=== PATIENT | female | born 1995 | race Caucasian/White ===

== ENCOUNTER 2020-01-24 15:53 | Emergency (ER) | payer OTHER, SELFPAY ==
[2020-01-24 15:55] VITALS: BP 130/61; PULSE 100; RESP 18; TEMP 36.1; O2SAT 100
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
[2020-01-24] MEDS: ACETAMINOPHEN 325 MG TABLET 650 MG PO (17:46)
== END 2020-01-24 17:47 | disposition home or self-care (01) ==
PROVIDERS: Emergency Provider Emergency Medicine
DX: S80.12XA Contusion of left lower leg, initial encounter (principal); V49.40XA Driver injured in collision with unspecified motor vehicles in traffic accident, initial encounter
CPT/HCPCS: 99282; A9270

== ENCOUNTER 2021-07-19 17:01 | Emergency (ER) | payer OTHER, SELFPAY ==
--- NOTE | ~2021-07-19 | XR_ITS ---
XR foot RT min 3V DATE: 07/19/2021 17:19 INDICATION: Lateral right foot pain. No injury. TECHNIQUE: 4 views COMPARISON: None FINDINGS: No fracture or dislocation, periosteal reaction or bone destruction. Joint spaces are prese rved. No erosive change. IMPRESSION: Negative Reviewed, dictated and finalized at location A. IMPRESSION: Negative
--- NOTE | 2021-07-19 17:05 | ED_ITS ---
HPI - Extremity Injury (Lower) General Chief Complaint: Extremity Problem,Nontraumatic Stated Complaint: rt foot pain Source: patient Mode of arrival: ambulatory Limitations: no limitations History of Present Illness HPI Narrative: Patient is a 25-year-old female who presents complaining of right foot pain. She denies injury. She denies taking pjrg-[id number] medications for pain. She reports the pain is cramping and stabbing. Patient reports pain increases with ambulation. No visible deformity, edema or lesions noted. Patient has no significant medical history. Related Data Home Medications Medication Instructions Recorded Confirmed No Home Medications 07/19/21 07/19/21 Allergies Allergy/AdvReac Type Severity Reaction Status Date / Time No Known Allergies Allergy Verified 07/19/21 17:11 Review of Systems Review of Systems: CONSTITUTIONAL: Denies fever, chills, or sweats. EYES: Denies visual changes, redness, or discharge. ENT: Denies rhinorrhea, congestion, sore throat, or otalgia. CARDIOVASCULAR: Denies chest pain, palpitations, or edema. RESPIRATORY: Denies cough or dyspnea. GASTROINTESTINAL: Denies abdominal pain, nausea, vomiting, or diarrhea. GENITOURINARY: Denies dysuria or hematuria. SKIN: Denies rash or itching. MUSCULOSKELETAL: Reports pain to right foot NEUROLOGIC: Denies headache, numbness, dizziness, or weakness. PSYCHIATRIC: Denies anxiety or depression. [facility] Social History Social History (Updated 07/19/21 @ 17:11 by HEATHER Henson) Smoking status: Never smoker Alcohol intake: current Alcohol use details: Occasional Substance use: never Living arrangements: with family Gender identity (if verbalized by the patient): Male Comments At the time of signature, I have reviewed and agree with nursing past medical, surgical, social, and family history unless otherwise noted. Please see nursing chart for further information. There is no relevant family history pertinent to the presenting complaint. Exam Narrative: GENERAL: Well-appearing, well-nourished, and in no acute distress. HEAD: Normocephalic, atraumatic. EYES: EOMI. No redness or drainage. Conjunctiva are normal. ENT: Mucous membranes pink and moist. CHEST: No respiratory distress. HEART: Regular rate and rhythm. EXTREMITIES: Normal range of motion. No edema. Tenderness with palpation to right lateral foot, edema noted at fifth metatarsal, no visible deformity SKIN: Warm, dry, no rash. NEURO: No focal deficits. Alert and oriented x3. Gait steady. PSYCH: Normal affect. No signs of depression or anxiety. Critical Care Time Critical Care Time Critical Care Time: No Discharge Plan Discharge Clinical Impression: Foot pain, right Patient Disposition: Home, Self-Care Condition: Stable Additional Instructions: Keep Trent wrap on for comfort. Rest, ice and elevate foot. You may take Tylenol or ibuprofen for pain. Follow-up with podiatry in 3 to 5 days if symptoms persist. Prescriptions: No Action No Home Medications RF: 0 Follow-up/Referrals: UNKNOWN,DOCTOR [Primary Care Provider] - Time of Disposition: 17:38
[2021-07-19 17:08] VITALS: BP 123/66; PULSE 84; RESP 16; TEMP 36.9; O2SAT 99
== END 2021-07-19 17:48 | disposition home or self-care (01) ==
PROVIDERS: Emergency Provider Nurse Practitioner
DX: M79.671 Pain in right foot (principal)
CPT/HCPCS: 73630; 99213; G0463

== ENCOUNTER 2024-01-06 17:58 | Emergency (ER) | payer OTHER, SELFPAY ==
[2024-01-06 18:18] VITALS: BP 147/80; PULSE 104; RESP 16; TEMP 36.5; O2SAT 100
[2024-01-06 19:22] LABS: Basophils Absolute Auto 0.1 K/mm3 (0.0-0.1); Basophils Percent Auto 0.4 % (0.2-1.2); Eosinophils Absolute Auto 0.2 K/mm3 (0-0.3); Eosinophils Percent Auto 1.4 % (0-4.4); Hematocrit 42.3 % (37.0-47.0); Hemoglobin 13.9 g/dL (12.0-15.0); Immature Granulocyte Absolute 0.06 K/mm3 (0.00-0.031); Immature Granulocyte Percent A 0.5 % (0-0.5); Lymphocytes Absolute Auto 2.16 K/mm3 (0.9-3.2); Lymphocytes Percent Auto 17.3 % (18.3-44.2); Mean Corpuscular HGB Conc 32.9 g/dl (32-36); Mean Corpuscular Hemoglobin 28.1 pg (26-34); Mean Corpuscular Volume 85.6 fl (80-100); Mean Platelet Volume 10.5 fl (7.4-10.4); Monocytes Absolute Auto 0.6 K/mm3 (0.1-0.6); Monocytes Percent Auto 4.7 % (2.6-8.5); Neutrophils Absolute Auto 9.4 K/mm3 (1.3-6.7); Neutrophils Percent Auto 75.7 % (45.5-73.1); Platelet Count Result 303 k/mm3 (150-375); Red Blood Count 4.94 M/mm3 (4.2-5.4); Red Cell Distribution Width 13.6 % (11.5-14.5); White Blood Count 12.5 K/mm3 (4.5-10.0)
[2024-01-06 19:26] LABS: Appearance Urine Clear (Clear); Bilirubin Urine Negative (Negative); Blood Urine Negative (Negative); Color Urine Yellow (Yellow); Glucose Urine UA Negative (Negative); Ketones Urine Negative (Negative); Leukocyte Esterase Ur Negative LEU/UL (Negative); Nitrate Urine Negative (Negative); Protein Urine Negative (Negative); Specific Grav Ur 1.012 (1.001-1.035)
[2024-01-06 19:27] LABS: Add Urine Microscopic? NO
--- NOTE | 2024-01-06 19:43 | ED.ABDPAIN ---
HPI - Abdominal Pain General Chief Complaint: Abdominal Pain Stated Complaint: abdominal pain x2 hours Time Seen by Provider: 01/06/24 18:26 History of Present Illness HPI narrative: Patient is a 28-year-old female presenting with abdominal pain. Patient states that she believes she is approximately 6 weeks . States that she has had multiple positive tests at home. Today she developed epigastric pain that felt sharp. Associated with some nausea. She was able to eat which seemed to improve it that she became concerned as she did not have pain like this in her 1st . She denies any lower abdominal pain. She denies any pain right now. No vaginal bleeding or discharge. No chest pain or shortness of breath. No leg swelling. No further complaints. Related Data Allergies Allergy/AdvReac Type Severity Reaction Status Date / Time No Known Allergies Allergy Verified 01/06/24 19:02 Review of Systems Review of Systems: All systems reviewed & are unremarkable except as noted in HPI and below PMFSH Social History Social History Smoking status: Never smoker Alcohol intake: current Alcohol use details: Occasional Substance use: never Living arrangements: with family Gender identity (if verbalized by the patient): Male Exam Narrative: GENERAL: Well-appearing, In no acute distress, pleasant and cooperative HEAD: Normocephalic, atraumatic. EYES: PERRLA and EOMI. ENT: grossly unremarkable NECK: Supple. CHEST: Clear to auscultation. No respiratory distress. HEART: Regular rate and rhythm. ABDOMEN: Soft, nontender, nondistended EXTREMITIES: Normal range of motion. SKIN: Warm, dry, no rash. NEURO: No focal deficits. Alert and oriented x3. PSYCH: Normal mood and affect. Course Vital Signs Vital signs: Vital Signs Temperature 97.7 F 01/06/24 18:18 Pulse Rate 104 H 01/06/24 18:18 Respiratory Rate 16 01/06/24 18:18 Blood Pressure 147/80 H 01/06/24 18:18 Pulse Oximetry 100 01/06/24 18:18 Oxygen Delivery Room Air 01/06/24 18:18 Temperature 97.7 F 01/06/24 18:18 Pulse Rate 97 01/06/24 21:37 Respiratory Rate 15 01/06/24 21:37 Blood Pressure 138/74 01/06/24 21:37 Pulse Oximetry 100 01/06/24 21:37 Oxygen Delivery Room Air 01/06/24 18:18 MDM - Abdominal Pain MDM Narrative Medical decision making narrative: 28-year-old female presenting with upper abdominal pain. Vitals are stable. Exam is unremarkable. Abdomen is soft and benign. Blood work with mild leukocytosis. Normal lipase, normal LFTs. UA is unremarkable. Beta hCG is 44,000, consistent with her approximate gestational age of 6 weeks. Feel the patient is safe for outpatient management. Advise Tylenol for pain. Recommend close OB and PCP follow-up. Appropriate return precautions given. Patient is agreeable with this plan. Discharged in stable condition. Differential Diagnosis Differential diagnosis: Likely abdominal pain, gastroenteritis, pancreatitis and other (epigastric pain) Medical Records Attestation: I reviewed the patient's medical records. Lab Data Attestation: I reviewed the patient's lab results. 01/06/24 19:13 01/06/24 19:13 Labs: Lab Results 01/06/24 Range/Units 19:13 WBC 12.5 H (4.5-10.0) K/mm3 RBC 4.94 (4.2-5.4) M/mm3 Hgb 13.9 (12.0-15.0) g/dL Hct 42.3 (37.0-47.0) % MCV 85.6 (80-100) fl MCH 28.1 (26-34) pg MCHC 32.9 (32-36) g/dl RDW 13.6 (11.5-14.5) % Plt Count 303 (150-375) k/mm3 MPV 10.5 H (7.4-10.4) fl Immature Gran % (Auto) 0.5 (0-0.5) % Neut % (Auto) 75.7 H (45.5-73.1) % Lymph % (Auto) 17.3 L (18.3-44.2) % [place] % (Auto) 4.7 (2.6-8.5) % Eos % (Auto) 1.4 (0-4.4) % Baso % (Auto) 0.4 (0.2-1.2) % Lymph # (Auto) 2.16 (0.9-3.2) K/mm3 [place] # (Auto) 0.6 (0.1-0.6) K/mm3 Eos # (Auto) 0.2 (0-0.3) K/mm3 Baso
[2024-01-06 20:00] LABS: Alanine Aminotransferase 28 U/L (6-35); Albumin Level 4.1 g/dL (3.5-5.1); Alkaline Phosphatase 55 U/L (38-126); Anion Gap 6 mmol/L (8-16); Aspartate Amino Transferase 26 U/L (14-36); Bilirubin,Total 0.4 mg/dL (0.2-1.3); Blood Urea Nitrogen 10 mg/dL (7-17); Calcium 8.9 mg/dL (8.4-10.2); Carbon Dioxide 25 mmol/L (22-30); Chloride 105 mmol/L (98-107); Estimated CRCL calculation 124 ml/min; Estimated Glomerular Filt Rate > 60; Glucose 132 mg/dL (65-110); Lipase 177 U/L (23-300); Potassium 3.8 mmol/L (3.4-5.0); Sodium 136 mmol/L (137-145)
[2024-01-06 21:37] VITALS: BP 138/74; PULSE 97; RESP 15; O2SAT 100
== END 2024-01-06 21:38 | disposition home or self-care (01) ==
PROVIDERS: Emergency Provider Emergency Medicine; PCP Nurse Practitioner Family
DX: O26.891 Other specified pregnancy related conditions, first trimester (principal); R10.13 Epigastric pain; Z3A.01 Less than 8 weeks gestation of pregnancy
CPT/HCPCS: 36415; 80053; 81003; 81025; 83690; 84702; 85025; 99283

== ENCOUNTER 2024-08-12 10:30 | Outpatient (CLI) | payer OTHER, SELFPAY ==
[2024-08-12 10:50] VITALS: BMI 41.0
[2024-08-12 11:00] VITALS: BP 124/74; PULSE 92
[2024-08-12 11:07] LABS: Basophils Percent Auto 0.4 % (0.2-1.2); Eosinophils Absolute Auto 0.3 K/mm3 (0-0.3); Eosinophils Percent Auto 3.1 % (0-4.4); Hematocrit 31.8 % (37.0-47.0); Hemoglobin 9.6 g/dL (12.0-15.0); Immature Granulocyte Absolute 0.15 K/mm3 (0.00-0.031); Immature Granulocyte Percent A 1.4 % (0-0.5); Lymphocytes Absolute Auto 1.41 K/mm3 (0.9-3.2); Lymphocytes Percent Auto 13.1 % (18.3-44.2); Mean Corpuscular HGB Conc 30.2 g/dl (32-36); Mean Corpuscular Hemoglobin 21.9 pg (26-34); Mean Corpuscular Volume 72.6 fl (80-100); Mean Platelet Volume 11.3 fl (7.4-10.4); Monocytes Absolute Auto 0.8 K/mm3 (0.1-0.6); Monocytes Percent Auto 7.2 % (2.6-8.5); Neutrophils Percent Auto 74.8 % (45.5-73.1); Platelet Count Result 292 k/mm3 (150-375); Red Blood Count 4.38 M/mm3 (4.2-5.4); Red Cell Distribution Width 15.8 % (11.5-14.5); White Blood Count 10.7 K/mm3 (4.5-10.0)
[2024-08-12 11:11] LABS: Creatinine Urine 79.3 mg/dL; Total Protein Urine Random 14 mg/dL; Ur Ttl Prot Creatinine Ratio 0.18 mg/mg (0-0.20)
[2024-08-12 11:15] VITALS: BP 125/73; PULSE 97
[2024-08-12 11:26] LABS: Alanine Aminotransferase 22 U/L (6-35); Albumin Level 3.4 g/dL (3.5-5.1); Alkaline Phosphatase 188 U/L (38-126); Anion Gap 10 mmol/L (4-12); Aspartate Amino Transferase 30 U/L (14-36); Bilirubin,Total 0.5 mg/dL (0.2-1.3); Blood Urea Nitrogen 8 mg/dL (7-17); Calcium 8.3 mg/dL (8.4-10.2); Carbon Dioxide 18 mmol/L (22-30); Chloride 107 mmol/L (98-107); Estimated Glomerular Filt Rate > 60; Glucose 114 mg/dL (65-110); Potassium 3.7 mmol/L (3.4-5.0); Sodium 135 mmol/L (137-145); Uric Acid 2.7 mg/dL (2.5-7.5)
[2024-08-12 11:30] VITALS: BP 127/75; PULSE 93
[2024-08-12 11:30] LABS: Add Urine Microscopic? YES; Appearance Urine Clear (Clear); Bilirubin Urine Negative (Negative); Blood Urine Negative (Negative); Color Urine Yellow (Yellow); Glucose Urine UA Trace mg/dL (Negative); Ketones Urine Negative (Negative); Leukocyte Esterase Ur 2+ LEU/UL (Negative); Need Manual Microscopic Reviewed; Nitrate Urine Negative (Negative); Non Pathogenic Casts 0-2; Protein Urine Negative (Negative); RBC Urine 0-2 /hpf (0-2); Specific Grav Ur 1.015 (1.001-1.035); Squamous Epithelial Cell Urine Occasional /hpf (Few); WBC Urine 0-5 /hpf (0-3); pH Urine 6.5 (5.0-9.0)
[2024-08-12 11:31] LABS: Bacteria Urine 2+ /hpf
[2024-08-12 11:40] LABS: Anisocytosis 2+; Platelet Estimate Adequate (Adequate); Schistocytes None Seen
== END 2024-08-12 11:43 | disposition home or self-care (01) ==
LOC: ANHOBOP 10:38 → ANHOBPP 10:39
PROVIDERS: PCP Nurse Practitioner Family; Visit Provider Obstetrics & Gynecology
DX: O16.5 Unspecified maternal hypertension, complicating the puerperium (principal)
CPT/HCPCS: 36415; 59025; 80053; 81001; 82570; 84156; 84550; 85025; 87086; 87181; 99199

== ENCOUNTER 2024-08-14 15:57 | Inpatient (IN) | payer OTHER, SELFPAY ==
[2024-08-14] VITALS (12 sets, daily range): BP systolic 101–150; BP diastolic 53–91; PULSE 93–116; TEMP 36.6–37.3; BMI 41.0
[2024-08-14] MEDS: AMPICILLIN 2 GM/NS 100 ML 2 GM/100 ML BAG IVPB (16:47)
[2024-08-14] MEDS: LACTATED RINGERS 1,000 ML 125 ML IV CONT (16:48)
--- NOTE | 2024-08-14 16:53 | LDADM ---
This patient, Ching Mota, was admitted to Labor/Delivery/Recovery 103 on 08/14/24 at 15:57. Plans for labor, pain management and were discussed with patient. Patient/family oriented to hospital policies and general routines including ID bracelet, bed and alarms, visiting hours, pain management, procedures, bathroom and other care routines, personal items, smoking policy, room service/diet and guest tray routines, security routines, and visiting hours. Patient/Family are encouraged to report perceived risks to care and to ask questions if they do not understand what they are told or what they should do. See [facility]BI[facility] for further documentation.
[2024-08-14 17:05] LABS: Basophils Percent Auto 0.3 % (0.2-1.2); Eosinophils Absolute Auto 0.3 K/mm3 (0-0.3); Eosinophils Percent Auto 2.9 % (0-4.4); Hematocrit 31.4 % (37.0-47.0); Hemoglobin 9.6 g/dL (12.0-15.0); Immature Granulocyte Absolute 0.11 K/mm3 (0.00-0.031); Lymphocytes Absolute Auto 1.47 K/mm3 (0.9-3.2); Mean Corpuscular HGB Conc 30.6 g/dl (32-36); Mean Corpuscular Volume 71.9 fl (80-100); Mean Platelet Volume 11.2 fl (7.4-10.4); Monocytes Absolute Auto 1.1 K/mm3 (0.1-0.6); Monocytes Percent Auto 9.4 % (2.6-8.5); Neutrophils Absolute Auto 8.3 K/mm3 (1.3-6.7); Neutrophils Percent Auto 73.4 % (45.5-73.1); Platelet Count Result 284 k/mm3 (150-375); Red Blood Count 4.37 M/mm3 (4.2-5.4); Red Cell Distribution Width 15.8 % (11.5-14.5); White Blood Count 11.3 K/mm3 (4.5-10.0)
[2024-08-14 17:08] LABS: Rapid Plasma Reagin Non-Reactive (NonReactive)
--- NOTE | 2024-08-14 17:11 | P.PNAN_ITS ---
Anes - Eval Pre Procedure Procedure: Labor Epidural Date/Time: 08/14/24 17:11 Surgeon: Donte Preop Diagnosis: Labor Pain Pre Op Diagnosis: IOL Patient Data Age: 28 Gender: F Height: 1.6 m Weight: 105 kg Last Vital Signs Pulse 98 08/14/24 17:00 BP 137/79 08/14/24 17:00 O2 Del Method Room Air 08/14/24 16:52 Allergies Allergy/AdvReac Type Severity Reaction Status Date / Time No Known Allergies Allergy Verified 08/12/24 08:44 Home Medications Medication Instructions Recorded Confirmed Type vits no.126-ferrous fum 1 tablet PO DAILY 01/24/24 08/14/24 History 28 mg iron-folic acid 800 mcg tablet (Classic ) Laboratory Tests 08/14/24 16:40 WBC Pending RBC Pending Hgb Pending Hct Pending MCV Pending MCH Pending MCHC Pending RDW Pending Plt Count Pending MPV Pending Immature Gran % (Auto) Pending Neut % (Auto) Pending Lymph % (Auto) Pending [place] % (Auto) Pending Eos % (Auto) Pending Baso % (Auto) Pending Lymph # (Auto) Pending [place] # (Auto) Pending Eos # (Auto) Pending Baso # (Auto) Pending Abs Immat Gran (auto) Pending Absolute Neuts (auto) Pending Absolute Nucleated RBC Pending Nucleated RBC % Pending RPR Non-reactive (NonReactive) HIV 1&2 Ab/P24 Ag 4thGn Pending Blood Type B Positive Antibody Screen Pending : gestational age (ANABEL 08/20/24) Patient hx anesthesia problems: none Family hx anesthesia problems: none Results Review: All pre-operative results and documents have been reviewed as part of the pre- operative evaluation. [facility] Past Medical History Medical History Suppression of menses Surgical History Surgical History H/O gynecological procedure Mirena IUD insertion 2014 Mirena IUD removal 2018 Family History Family History Sibling Thyroid cancer Social History Social History Smoking status: Never smoker Alcohol intake: current Alcohol use details: Occasional Substance use: never Do You Feel Safe in your Home?: Yes Lack of Transportation: No Lack of Food: Never True Current Housing: I Have Housing Concerned About Future Housing: No Difficulty Paying Gas/Electric Bills: No Difficulty Paying for Meds: No Currently Unemployed: No Education: High School Diploma/GED Difficulty w/ Childcare or Family Care: No Living arrangements: with family Occupation/Education: occupation Gender identity (if verbalized by the patient): Female Sexual Orientation (if Verbalized by the Patient): Straight or Heterosexual Spiritual care concerns: No Exam Day of Procedure 08/14/24 17:11 Patient weight: normal Heart: regular rate and rhythm Lungs: normal air movement Airway: Mallampati scale class II Neurological: alert and oriented
[2024-08-14 17:27] LABS: Platelet Estimate Adequate (Adequate); Schistocytes None Seen
[2024-08-14 17:28] LABS: Hypochromasia 1+; Microcytosis 1+ (NORMAL)
[2024-08-14 17:29] LABS: Anisocytosis 2+
[2024-08-14 17:43] LABS: HIV 1/2 Ab P24 Ag Result Negative (Negative)
[2024-08-14] MEDS: DINOPROSTONE 10 MG VAG INSERT VAGINAL (17:46)
[2024-08-14] MEDS: AMPICILLIN 1 GM/NS 50 ML 1 GM/50 ML BAG IVPB (20:22)
[2024-08-15] VITALS (142 sets, daily range): BP systolic 62–138; BP diastolic 43–98; PULSE 51–216; RESP 16–20; TEMP 36.3–37.1; O2SAT 80–100
[2024-08-15] MEDS: AMPICILLIN 1 GM/NS 50 ML 1 GM/50 ML BAG IVPB ×3 (00:05→08:39)
[2024-08-15] MEDS: OXYTOCIN 30 UNITS/NS 500 ML 30 UNITS/500 ML BAG IV CONT (05:38)
[2024-08-15] MEDS: LACTATED RINGERS 1,000 ML 125 ML IV CONT ×3 (07:52→11:08)
[2024-08-15] MEDS: PHENYLEPHRINE 1,000 MCG/10 ML SYRINGE 100 MCG IV PUSH ×2 (07:53→07:55)
[2024-08-15] MEDS: SODIUM CHLORIDE 0.9% IV 300 ML 600 ML I-UTERINE (09:16)
--- NOTE | 2024-08-15 10:19 | PM.IMHP ---
H&P: HPI History of Present Illness Date/Time: 08/15/24 10:19 28-year-old 2 para 1001 female at 39 weeks presents for induction of labor. care essentially uncomplicated, other than elevated blood pressure this week for which PIH labs were negative and blood pressure responded readily to further monitoring. records are on the chart. Chief Complaint: Review of Systems Review of Systems: All systems reviewed & are unremarkable except as noted in HPI and below PMFSH Past Medical History Medical History Suppression of menses Surgical History Surgical History H/O gynecological procedure Mirena IUD insertion 2014 Mirena IUD removal 2019 Family History Family History Sibling Thyroid cancer Social History Social History Smoking status: Never smoker Alcohol intake: current Alcohol use details: Occasional Substance use: never Do You Feel Safe in your Home?: Yes Lack of Transportation: No Lack of Food: Never True Current Housing: I Have Housing Concerned About Future Housing: No Difficulty Paying Gas/Electric Bills: No Difficulty Paying for Meds: No Currently Unemployed: No Education: High School Diploma/GED Difficulty w/ Childcare or Family Care: No Living arrangements: with family Occupation/Education: occupation Gender identity (if verbalized by the patient): Female Sexual Orientation (if Verbalized by the Patient): Straight or Heterosexual Spiritual care concerns: No Meds Home Medications and Allergies Home Medications Medication Instructions Recorded Confirmed Type vits no.126-ferrous fum 1 tablet PO DAILY 01/24/24 08/14/24 History 28 mg iron-folic acid 800 mcg tablet (Classic ) Allergies Allergy/AdvReac Type Severity Reaction Status Date / Time No Known Allergies Allergy Verified 08/12/24 08:44 Vital Signs Vital Signs - 24 hr 08/14/24 16:35 08/14/24 16:45 08/14/24 17:00 Temperature 99.1 F Pulse Rate 94 97 98 Blood Pressure 124/75 125/76 137/79 Oxygen Delivery 08/14/24 17:15 08/14/24 17:30 08/14/24 18:01 Temperature Pulse Rate 99 113 H 93 Blood Pressure 119/72 150/71 H 104/56 L Oxygen Delivery 08/14/24 18:15 08/14/24 18:30 08/14/24 19:00 Temperature 98 F Pulse Rate 105 H 103 H 102 H Blood Pressure 117/62 117/53 L 101/59 L Oxygen Delivery 08/14/24 19:30 08/14/24 20:16 08/14/24 20:31 Temperature Pulse Rate 98 116 H 111 H Blood Pressure 106/55 L 126/91 H 108/60 Oxygen Delivery 08/15/24 00:11 08/15/24 00:30 08/15/24 01:00 Temperature Pulse Rate 99 91 101 H Blood Pressure 120/69 110/77 120/93 H Oxygen Delivery 08/14/24 16:52 08/15/24 01:16 08/15/24 01:31 Temperature Pulse Rate 80 93 Blood Pressure 133/54 L 113/53 L Oxygen Delivery Room Air Exam Resp: Effort & Inspection: normal respiratory effort Auscultation: clear to auscultation bilaterally Cardio: Rate: regular rate Rhythm: regular rhythm GI: Inspection: normal to inspection Auscultation: normal bowel sounds : Speculum Exam - Cervix: Other cervical findings present ( -/-3) Bimanual exam- vagina & uterus: enlarged ( 39cm heart tone 120) H&P: Results Labs Labs: Short CBC 08/14/24 Range/Units 16:40 WBC 11.3 H (4.5-10.0) K/mm3 Hgb 9.6 L (12.0-15.0) g/dL Hct 31.4 L (37.0-47.0) % Plt Count 284 (150-375) k/mm3 Assessment and Plan Assessment and plan (1) 39 weeks gestation of : Code(s): Z3A.39 - 39 weeks gestation of Status: Acute (2) Encounter for elective induction of labor: Code(s): Z34.90 - Encounter for supervision of normal , unspecified, unspecified trimester Status: Acute Plan 1. Cervidil induction 2. AROM with low-dose Pitocin as needed 3. Pain meds/epidural as needed
[2024-08-15] MEDS: ONDANSETRON INJ 4 MG/2 ML VIAL IV PUSH ×2 (11:43→16:05)
[2024-08-15] MEDS: ACETAMINOPHEN 500 MG TABLET 1000 MG PO (11:46)
[2024-08-15] MEDS: AZITHROMYCIN 500 MG/NS 250 ML 500 MG/250 ML BAG 250 MG IVPB (11:47)
[2024-08-15] MEDS: FAMOTIDINE 20 MG/2 ML VIAL IV PUSH (11:49)
[2024-08-15] MEDS: ceFAZolin 2 GM/D5W 50 ML 2 GM/50 ML BAG IVPB (11:54)
--- NOTE | 2024-08-15 12:40 | P.PCNOB_ITS ---
OB - Delivery Note Procedure Delivery date: 08/15/24 Pre-op diagnosis: Arrest of Dilation, Failed Induction of Labor, Decelerations and Non-Reassuring Status Post-op Diagnosis: Same Procedure Performed: Primary Primary branch: low cervical, transverse Surgeon: Darren Kent MD Anesthesia type: Spinal Description of Procedure/Findings: Patient prepped and draped in usual manner for this procedure. Pfannenstiel incision was made and carried down to the fascia which was then extended bilaterally the length of the skin incision. Superiorly and inferiorly then dissected away from the rectus muscles. Peritoneum was readily entered and bladder flap was developed. Uterus was scored and extended bilaterally length of the lower segment. Vertex was delivered without difficulty, cord was clamped and cut the baby was passed off the operative field. Uterus was manually removed and uterus was cleared of membranes and clots. Uterine incision was then closed using 0 Monocryl in a running interlocking manner with good approximation hemostasis noted. Uterus was turned the abdomen and uterine incision again noted be hemostatic. All subfascial tissue was noted be hemostatic and the fascia was approximated using 0 Vicryl from the left angle midline and then from the right angle to midline. Subcutaneous tissue was rendered hemostatic and approximated using 0 plain suture and the skin was then approximated using renetta patient was sent to recovery room in stable condition. Specimen: Yes Estimated Blood Loss: 810 Drains: No Packing: No Pathology: Yes Complications: No immediate complications Condition: Stable Disposition: PACU [place] Baby Gestational Age by Date: 39 gender: Male Weight (pounds): 8 Weight (ounces): 7 presentation: vertex Placenta delivery description: Manual Removal Cord Vessel Description: 3 Vessels score one minute: 8 score five minutes: 9
[2024-08-15] MEDS: OXYTOCIN 30 UNITS/NS 500 ML 30 UNITS/500 ML BAG 125 UNITS IV CONT (13:46)
--- NOTE | 2024-08-15 15:05 | OBPPTRN ---
Patient transferred to post room #282 via stretcher. Support person present. Oriented to unit, room, information board, rooming in, admission packet and security measures. Patient verbalizes understanding.
[2024-08-15] MEDS: MORPHINE SULFATE (*CRX) 2 MG/ML INJ IV PUSH (16:05)
--- NOTE | 2024-08-15 17:15 | PC.NURSE ---
1700. Introductions were made, then consulted with patient to assess needs related to . Mother led the conversation with her?plans to feed?her infant and the?experience so far. Mom reports that she would like to bottle feed and breastfeed her . Mom is unsure if she wants to continue to bring the to the breast. She reports she might want to just pump and bottle feed, but she isn't ready to decide yet. We discuss that she has time to try both and see what she prefers and move forward with her preference at that time. Encouraged understanding of the benefits of skin to skin (demonstrating unwrapping infant and placing upright on her chest), stimulating with massage touch, changing positions to encourage wakefulness, how to watch for early feeding cues, responsive feeding, feeding on demand (aiming for 10-12 times in 24 hours, about every 2-3 hours), milk production, building/maintaining a milk supply, duration of feeding, signs of adequate intake/output and how to record on the feeding sheet. Mother works well with her with encouragement and education. Reviewed positioning and ear, shoulder, hip alignment, supporting the breast to facilitate a deep latch, asymmetrical latch (off-center), leading with the chin with a big, open, wide gape and body close to mother. Infant did attempt to latch a few times but did not successfully obtain a latch because mom started vomiting. Will need to assess mom's nipples at a different time due to patient not in a good condition for assessment. Inpatient resources provided with feeding sheet,& name written on the communication board, and the mom/baby guide. Parents voiced understanding of information, demonstrated learning and will call if there is a request for assistance. Reported to the Primary RN.
[2024-08-15] MEDS: DEXTROSE 5%/0.45% SOD CHL 1,000 ML 125 ML IV CONT (17:38)
[2024-08-15] MEDS: KETOROLAC 15 MG/ML VIAL (*BKC) IV PUSH (18:46)
[2024-08-15] MEDS: PROMETHAZINE HCL 25 MG/ML AMPUL 12.5 MG IV PUSH (18:46)
[2024-08-16] MEDS: KETOROLAC 15 MG/ML VIAL (*BKC) IV PUSH ×3 (00:49→14:03)
[2024-08-16] MEDS: ACETAMINOPHEN 325 MG TABLET 650 MG PO ×4 (00:49→19:38)
[2024-08-16 03:40] VITALS: BP 104/64; PULSE 87; RESP 12; TEMP 36.6; O2SAT 95
[2024-08-16 04:16] LABS: Basophils Absolute Auto 0.1 K/mm3 (0.0-0.1); Basophils Percent Auto 0.5 % (0.2-1.2); Eosinophils Absolute Auto 0.1 K/mm3 (0-0.3); Eosinophils Percent Auto 0.6 % (0-4.4); Hematocrit 26.9 % (37.0-47.0); Hemoglobin 8.2 g/dL (12.0-15.0); Immature Granulocyte Absolute 0.09 K/mm3 (0.00-0.031); Immature Granulocyte Percent A 0.5 % (0-0.5); Immature Platelet Fraction Pct 9.8 % (0.9-11.2); Lymphocytes Absolute Auto 1.89 K/mm3 (0.9-3.2); Lymphocytes Percent Auto 10.5 % (18.3-44.2); Mean Corpuscular HGB Conc 30.5 g/dl (32-36); Mean Corpuscular Hemoglobin 21.9 pg (26-34); Mean Corpuscular Volume 71.7 fl (80-100); Mean Platelet Volume 11.2 fl (7.4-10.4); Monocytes Percent Auto 5.6 % (2.6-8.5); Neutrophils Absolute Auto 14.8 K/mm3 (1.3-6.7); Neutrophils Percent Auto 82.3 % (45.5-73.1); Platelet Count Result 319 k/mm3 (150-375); Red Blood Count 3.75 M/mm3 (4.2-5.4); White Blood Count 17.9 K/mm3 (4.5-10.0)
[2024-08-16 04:28] LABS: Anisocytosis 2+; Hypochromasia 1+; Platelet Estimate Adequate (Adequate); Schistocytes None Seen
--- NOTE | 2024-08-16 07:18 | PM.OBPNVD ---
OB - PN: Subj Subjective Date/time seen: 08/16/24 07:18 Narrative: POD#1 Ching reports doing well today. 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 Her pain is not controlled, but she refused the lidocaine patch and any narcotics. She is tolerating regular diet. Catheter was removed this AM at 0400. She vomited multiple times after her , but has tolerated some regular diet overnight. She just sat up in the chair for the first time this morning. She does not think she's passed gas yet. She denies any issues with her incision. She is breast and bottle feeding. She would like her son circumcised. OB - PN: Obj Data Labs 08/16/24 03:49 Labs: Laboratory Results - last 24 hr 08/16/24 03:49 WBC 17.9 H RBC 3.75 L Hgb 8.2 L Hct 26.9 L MCV 71.7 L MCH 21.9 L MCHC 30.5 L RDW 16.0 H Plt Count 319 MPV 11.2 H Immature Gran % (Auto) 0.5 Neut % (Auto) 82.3 H Lymph % (Auto) 10.5 L Lanier % (Auto) 5.6 Eos % (Auto) 0.6 Baso % (Auto) 0.5 Lymph # (Auto) 1.89 Lanier # (Auto) 1.0 H Eos # (Auto) 0.1 Baso # (Auto) 0.1 Abs Immat Gran (auto) 0.09 H Absolute Neuts (auto) 14.8 H Absolute Nucleated RBC 0.000 Nucleated RBC % 0.0 Platelet Estimate Adequate % Immature Plt Fraction 9.8 Hypochromasia 1+ Anisocytosis 2+ Schistocytes None seen OB - PN A/P Assessment and Plan (1) S/P primary low transverse : Code(s): Z98.891 - History of uterine scar from previous surgery Status: Acute Plan day: 1 Plan: routine care Comments: - Venofer 500mg IV once - PO pain meds encouraged, as well at the lidocaine patch - Regular diet - Ambulation and hydration encouraged - Continue putting baby to breast q2-3hr Time Spent With Patient Time: Total time spent is greater than 50% in coordination of care (as documented) at patient's floor/unit and/or counseling patient: Review of Systems Constitutional: Constitutional: Denies chills, Denies fever(s) and Denies headache(s) Eyes: Eyes: Denies change in vision ENT: Denies dizziness and Denies headache(s) Cardiovascular: Cardiovascular: Denies chest pain, Denies palpitations and Denies dyspnea Respiratory: Respiratory: Denies cough and Denies dyspnea Gastrointestinal: Gastrointestinal: Denies nausea and Denies vomiting Genitourinary: Comments: normal bleeding Neurologic: Denies dizziness and Denies headache(s) Endocrine: Endocrine: Denies palpitations Exam Const: General: cooperative, comfortable and no acute distress Orientation/consciousness: patient oriented x3 Resp: Effort & Inspection: normal respiratory effort Auscultation: clear to auscultation bilaterally Cardio: Rate: regular rate GI: Inspection: non-distended and incision (covered with clean dressing) GI Palp: Yes abdominal tenderness (appropriate) and Yes Soft to palpation Auscultation: normal bowel sounds : Other: fundus firm Skin: General skin exam: normal color Neuro: General: patient oriented x3 Extrem: General: normal to inspection Psych: Appearance: grossly normal Affect: normal affect Attitude: cooperative
[2024-08-16] MEDS: IRON SUCROSE COMPLEX 400 MG, IRON SUCROSE COMPLEX 100 MG in SODIUM CHLORIDE 0.9% IV 250 ML 78.57 MG IVPB (08:30)
[2024-08-16] MEDS: DOCUSATE SODIUM 100 MG CAPSULE PO ×2 (08:31→16:41)
[2024-08-16] MEDS: MULTIVIT/MIN/PREN/FOL AC/IRON TABLET 1 TAB PO (08:31)
[2024-08-16] MEDS: SIMETHICONE 80 MG TAB.CHEW PO ×3 (08:31→16:41)
[2024-08-16] MEDS: HYDROcodone/acetaminophen (*CRX) 5-325 MG TABLET 1 TAB PO (08:31)
[2024-08-16] MEDS: LIDOCAINE 5% PATCH 1 PATCH TRANSDERM (08:31)
[2024-08-16 08:35] VITALS: BP 106/58; PULSE 75; RESP 16; TEMP 37; O2SAT 95
--- NOTE | 2024-08-16 09:15 | PC.NURSE ---
Breast pump provided due to maternal request to pump and bottle feed. Mom has her own Mom Cozy pump. Advised patient that the suction may not be as efficient with the wearable pump, hospital pump offered for use while she's establishing a supply, mom declines. Instructions given on cleaning, care, usage, that there should be no pain, pumping schedule for milk production, collection, and storage of human milk, all according to her pump manual. Patient was assessed for correct placement, flange size (19mm flange insert), to pump for comfort and nipple stretching/stimulation for adequate milk production every 3 hours (8 times in 24 hours) 1-2 times at night. Parents are encouraged to record the pumping schedule on the feeding sheet.?Mother voiced understanding of the education shared along with mom/baby guide. Reported to the Primary RN.
--- NOTE | 2024-08-16 10:49 | WPDANLDPN2 ---
Anes-Prog Note L&D Date/Time: 08/16/24 10:49 Comfortable throughout: labor, delivery and section Neuraxial method: epidural Epidural/Spinal procedure site: clean & non-tender Neuro status: Neuro function grossly intact. Cardiovascular status: normal Respiratory status: normal Airway patency: baseline Mental status: baseline Post-Op hydration status: normal Vital Signs: Last Vital Signs Temp 37.0 C 08/16/24 08:35 Pulse 75 08/16/24 08:35 Resp 16 08/16/24 08:35 BP 106/58 L 08/16/24 08:35 Pulse Ox 95 08/16/24 08:35 O2 Del Method Room Air 08/15/24 15:25 Pain score (VAS): 3/10 I/O: Intake & Output 08/15/24 08/16/24 08/16/24 23:59 07:59 15:59 Intake Total 900 Output Total 1600 Balance -700 Post-procedural complaints: none Patient feedback: Patient satisfied with anesthetic care.patient comfortable during labor. taken for c/s related to nonreassuring FHR tracing. patient comfortable during section
--- NOTE | 2024-08-16 10:50 | WPDANLDNPN2 ---
Anes-Prog Note L&D-Neuraxial Date/Time: 08/16/24 10:50 Neuraxial medications: epidural PF morphine Opiod-related complaints: none Patient feedback: Patient satisfied with post-operative pain management.
[2024-08-16 12:43] VITALS: BP 102/57; PULSE 93; RESP 16; TEMP 36.9; O2SAT 97
[2024-08-16] MEDS: HYDROcodone/acetaminophen (*CRX) 10-325 MG TABLET 1 TAB PO ×2 (14:02→20:58)
[2024-08-16 19:32] VITALS: BP 112/58; PULSE 88; RESP 14; TEMP 36.6; O2SAT 98
[2024-08-16] MEDS: IBUPROFEN 600 MG TABLET PO (19:38)
[2024-08-16] MEDS: POLYSACCHARIDE IRON COMPLEX 150 MG CAPSULE PO (19:38)
[2024-08-17] MEDS: ACETAMINOPHEN 325 MG TABLET 650 MG PO ×2 (01:56→07:57)
[2024-08-17] MEDS: IBUPROFEN 600 MG TABLET PO ×2 (01:57→07:57)
[2024-08-17 07:50] VITALS: BP 124/65; PULSE 99; RESP 16; TEMP 36.8; O2SAT 98
[2024-08-17] MEDS: POLYSACCHARIDE IRON COMPLEX 150 MG CAPSULE PO (07:57)
[2024-08-17] MEDS: SIMETHICONE 80 MG TAB.CHEW PO ×2 (07:58→12:21)
[2024-08-17] MEDS: MULTIVIT/MIN/PREN/FOL AC/IRON TABLET 1 TAB PO (07:58)
[2024-08-17] MEDS: DOCUSATE SODIUM 100 MG CAPSULE PO (07:58)
[2024-08-17] MEDS: HYDROcodone/acetaminophen (*CRX) 5-325 MG TABLET 1 TAB PO ×2 (09:20→12:21)
--- NOTE | 2024-08-17 10:39 | PM.OBDSVD ---
DS: Admitting Diagnosis Discharge Date 08/17/24 Admitting Diagnosis Induction of labor Elevated blood pressure DS: Discharge Diagnosis Discharge Diagnosis (1) S/P primary low transverse : Code(s): Z98.891 - History of uterine scar from previous surgery Status: Acute (2) Non-reassuring heart rate, delivered, current hospitalization: Code(s): O76 - Abnormality in heart rate and rhythm complicating labor and delivery Status: Acute OB - DS: Summary OB Procedures : NST, PIH Mgmt and Ultrasound OB Procedures Intrapartum: low cervical, transverse OB Procedures: : None and Other (venofer IV 500mg ) Peripartum Data Delivery Method: Section Procedures: Procedures Operation Date: 08/15/24 11:40 Actual Procedure Side Surgeon p Section Not Applicable Darren Kent MD complications: none 1: Gender: Male Disposition of : home Status at Discharge Functional status at discharge: independent ambulation Overall status at discharge: patient is back to baseline Time Spent with Patient Time attestation: Total time spent providing and/or coordinating discharge services: Time spent: Less than 30 minutes Exam Const: General: cooperative, comfortable and no acute distress Orientation/consciousness: patient oriented x3 Resp: Effort & Inspection: normal respiratory effort Auscultation: clear to auscultation bilaterally Cardio: Rate: regular rate GI: Inspection: non-distended and incision (with renetta) GI Palp: No abdominal tenderness and Yes Soft to palpation Auscultation: normal bowel sounds : Other: fundus firm Skin: General skin exam: normal color Neuro: General: patient oriented x3 Extrem: General: normal to inspection Psych: Appearance: grossly normal Affect: normal affect Attitude: cooperative DS: Data Data Completed and Pending Pending studies at discharge: Pending at discharge 08/15/24 13:07 Surgical [PTH] Routine Discharge Plan Discharge Attending physician on discharge: Linda Connolly Discharging Clinician: Linda Connolly Anticipated Discharge Date/Time: 08/17/24 13:00 Patient Disposition: Home, Self-Care Activity: may shower, may drive after 2 weeks and pelvic rest Diet: regular Discharge Instructions: call office for staple removal pelvic rest, no heavy lifting over 15 pounds for 6wks Patient Instructions: (DC) Stand Alone Forms: General Discharge Information Follow-up/Referrals: Darren Kent MD [Physician] - 1 Week (staple removal and then in 4wks for visit) Discharge Medications: New acetaminophen 325 mg Tablet 650 mg PO Q6HR Qty: 60 0RF docusate sodium 100 mg Capsule 100 mg PO BID Qty: 90 0RF hydrocodone-acetaminophen 5-325 mg Tablet 1 tablet PO Q4H PRN (Reason: Breakthrough Pain Rated 4-6) Qty: 18 0RF ibuprofen 600 mg Tablet 600 mg PO Q6HR Qty: 40 0RF mupirocin 2 % Ointment 1 applic topical BID Qty: 15 0RF Continued Classic 28 mg iron- 800 mcg tablet 1 tablet PO DAILY Date of admission: 08/14/24 15:57 Primary Care Provider: Karen,Torri White Admitting Provider: Darren Kent Attending physician on admission: Darren Kent Condition: Stable
[2024-08-17] MEDS: MUPIROCIN 2% OINT 22 GM TUBE 1 APPLIC TOPICAL (11:19)
[2024-08-19 11:29] VITALS: BP 121/77; PULSE 91; RESP 18; TEMP 36.9; O2SAT 100
--- NOTE | 2024-08-21 16:30 | WPDHPUPDATE1 ---
History and Physical Update Update Date/Time: 08/21/24 16:30 History and Physical has been reviewed, including an updated exam of the patient. There are NO changes in the patient's condition. Risks, benefits, and alternatives have been discussed and questions answered. Patient agrees to proceed with procedure.
== END 2024-08-17 14:00 | disposition home or self-care (01) | DRG 788 ==
LOC: ANHOB2 08-17 11:04 → ANHLDR 08-19 08:09 → ANHOB2 08-19 08:09
PROVIDERS: Admitting Provider Obstetrics & Gynecology; PCP Nurse Practitioner Family; Visit Provider Obstetrics & Gynecology
PROC: 10D00Z1 Extraction of Products of Conception, Low, Open Approach (ICD-10-PCS; CPT 59514; principal; 2024-08-15 11:40)
DX: O62.0 Primary inadequate contractions (principal); O76 Abnormality in fetal heart rate and rhythm complicating labor and delivery; Z3A.39 39 weeks gestation of pregnancy; Z37.0 Single live birth
CPT/HCPCS: 36415; 85025; 85055; 86592; 86703; 86850; 86900; 86901; 88307; A9270; G0432; J0290; J0456; J0690; J1756; J1885; J2270; J2274; J2371; J2405; J2550; J2590; J2795; J7030; J7050; J7120

== ENCOUNTER 2024-10-15 13:56 | Outpatient (CLI) | payer OTHER, SELFPAY ==
[2024-10-15 14:56] LABS: Beta HCG Quantitative < 2.39 mIU/ML
== END 2024-10-15 13:57 | disposition home or self-care (01) ==
LOC: ANHLAB 13:57
PROVIDERS: PCP Nurse Practitioner Family; Visit Provider Obstetrics & Gynecology
DX: N92.6 Irregular menstruation, unspecified (principal)
CPT/HCPCS: 36415; 84702